=== PATIENT | male | born 1990 | race Caucasian/White ===

== ENCOUNTER 2023-06-28 03:42 | Emergency (ER) | payer MEDICAID ==
[~2023-06-28] VITALS: Ht 172.7 cm; Wt 80.0 kg
[2023-06-28 03:52] VITALS: O2SAT 99
[2023-06-28 04:30] VITALS: TEMP 98.9
[2023-06-28 04:55] LABS: BASOPHILS % 0.4 % (0.0-2.0); EOSINOPHILS % 0.1 % (0.0-5.0); HEMATOCRIT. 46.1 % (42.0-52.0); HEMOGLOBIN. 15.2 g/dL (14.0-18.0); LYMPHOCYTES % 9.7 % (20.0-50.0); MEAN CORPUSCULAR HGB CONC 33.1 g/dL (31.0-37.0); MEAN CORPUSCULAR VOLUME 81.5 fL (80.0-94.0); MEAN PLATELET VOLUME 7.7 fl (7.4-10.4); MONOCYTES % 2.9 % (2.0-8.0); NEUTROPHILS % 86.9 % (40.0-76.0); PLATELET 226 x1000/uL (130-400); RED BLOOD CELL COUNT 5.65 mill/uL (4.7-6.1); RED CELL DISTRIBUTION WIDTH 13.4 % (11.6-14.6); WHITE BLOOD COUNT 6.7 x1000/uL (4.5-11.0)
[2023-06-28 05:06] LABS: CHLORIDE 104 mEq/L (98-107); INDEX HEMOLYSI 1 (1-3); INDEX ICTERIC 1 (1-4); INDEX LIPEMIC 1 (1-3); POTASSIUM 3.8 mEq/L (3.5-5.1); SODIUM 136 mEq/L (136-145)
[2023-06-28 05:13] LABS: ALANINE AMINOTRANSFERASE 25 IU/L (13-61); ALBUMIN 3.9 g/dL (3.4-5.0); ASPARTATE AMINOTRANSFERASE 13 IU/L (15-37); BILIRUBIN TOTAL 0.4 mg/dL (0.1-1.0); CALCIUM 9.3 mg/dL (8.5-10.1); CARBON DIOXIDE 28 mEq/L (21-32); CREATININE 0.7 mg/dL (0.6-1.3); GLUCOSE 139 mg/dL (70-105); PROTEIN TOTAL 7.4 g/dL (6.0-8.3); UREA NITROGEN BLOOD 7 mg/dL (7-21)
[2023-06-28 05:27] LABS: PROTHROMBIN TIME 10.6 sec (9.6-11.0)
[2023-06-28] MEDS ORDERED: MAGNESIUM/ALUMINUM HYDROXIDE/SIMETHICONE 30ML UDC PO STA (06:06)
[2023-06-28] MEDS ORDERED: FAMOTIDINE 20MG/2ML VIAL IV STA (06:06)
[2023-06-28] MEDS ORDERED: METOCLOPRAMIDE HCL 10MG/2ML VIAL IV STA (06:06)
[2023-06-28] MEDS ORDERED: SODIUM CHLORIDE 0.9% 1,000 ML IV ONE (06:15)
[2023-06-28] MEDS ORDERED: FAMOTIDINE 20MG/2ML VIAL IV NR (07:49)
[2023-06-28] MEDS ORDERED: MAGNESIUM/ALUMINUM HYDROXIDE/SIMETHICONE 30ML UDC PO SCH (07:50)
[2023-06-28] MEDS ORDERED: METOCLOPRAMIDE HCL 10MG/2ML VIAL IV NR (07:51)
[2023-06-28] MEDS ORDERED: IBUPROFEN 400MG TABLET PO ONE (09:30)
[2023-06-28 09:46] VITALS: BP 141/79; PULSE 93; RESP 23
[2023-06-28 10:57] LABS: CLARITY URINE TURBID (CLEAR); COLOR URINE DARK YELLOW (YELLOW); GLUCOSE URINE NEGATIVE (NEGATIVE); KETONES URINE TRACE (NEGATIVE); LEUKOCYTE ESTERASE URINE NEGATIVE (NEGATIVE); NITRITE URINE NEGATIVE (NEGATIVE); OCCULT BLOOD URINE NEGATIVE (NEGATIVE); PH URINE >=9.0 (4.5-8.0); PROTEIN URINE 2+ (NEGATIVE); SPECIFIC GRAVITY URINE 1.022 (1.005-1.030); UROBILINOGEN URINE 0.2 E.U./dL (0.2-1.0)
[2023-06-28] MEDS ORDERED: IOHEXOL-300 100 ML BOTTLE ONE (10:58)
[2023-06-28 11:00] LABS: RBC URINE 0-2 /hpf (0-2); SQUAMOUS EPITHELIAL CELL URINE NONE SEEN /lpf (RARE/1+); WBC URINE 0-2 /hpf (0-2); YEAST URINE NONE SEEN
[2023-06-28 11:14] LABS: CALCIUM OXALATE CRYSTALS URINE 2+ /lpf
[2023-06-28 11:15] LABS: AMORPHOUS SEDIMENT URINE 2+ /lpf; BACTERIA URINE FEW
== END 2023-06-28 11:20 | disposition home or self-care (01) ==
LOC: ER 03:42
DX: R10.13 Epigastric pain (principal); Z87.442 Personal history of urinary calculi
CPT/HCPCS: 80053; 81003; 83690; 85025; 85610; 36415; 74177; 96361; 96374; 96375; 99285; Q9967; J3490; J2765; J7030; Z7610